=== PATIENT | female | born 1950 | race Caucasian/White ===

== ENCOUNTER → 2016-04-19 | Outpatient (CLI) | payer OTHER ==
--- NOTE | 2016-04-19 14:29 | MA ---
Diagnostic Digital Mammogram left Breast Clinical Indications: Follow up possible developing architectural distortion left breast. Technique: Compression was obtained in CC, mediolateral oblique, and 90-degree lateral views of the left breast. This examination is processed by the [employer] computer-aided detection system. Comparison: August 07, 2015; March 16, 2015; and studies dating back to June 09, 2009. Breast density: B; There are scattered areas of fibroglandular density. Findings: CAD was reviewed. The density of concern appears to represent normal overlapping breast parenchymal tissue. No signifi cant abnormality seen. Impression: Benign findings. BI-RADS 2. These findings were communicated with the patient. Recommendation: Routine annual mammography is recommended in one year. [facility] will send a result letter to the patient. Negative mammography should not preclude additional workup of a clinically suspicious finding.
== END ==
LOC: BMCIMAGING 13:20
DX: R92.8 Other abnormal and inconclusive findings on diagnostic imaging of breast (principal)
CPT/HCPCS: G0206

== ENCOUNTER → 2017-05-02 | Outpatient (CLI) | payer OTHER | LOC: BMCIMAGING 08:18 | PROVIDERS: ATTEND Internal Medicine | DX: Z12.31 Encounter for screening mammogram for malignant neoplasm of breast (principal) ==

== ENCOUNTER 2017-05-16 17:01 | Emergency (ER) | payer OTHER | END 2017-05-16 17:16 | disposition left against medical advice (07) | LOC: CED 17:01 | DX: Z53.21 Procedure and treatment not carried out due to patient leaving prior to being seen by health care provider (principal) ==

== ENCOUNTER 2017-05-16 17:41 | Emergency (ER) | payer OTHER ==
[2017-05-16 17:49] VITALS: TEMP 98.1
[2017-05-16] MEDS ORDERED: NS 1,000 ML IV ONE ×2 (17:54→20:42)
--- NOTE | 2017-05-16 18:02 | CPEKG ---
Heart Rate: 68 RR Interval: 882 P-R Interval: 168 QRSD Interval: 80 QT Interval: 424 QTC Interval: 451 P [place]: 34 QRS [place]: -17 T Wave [place]: 60 EKG Severity - OTHERWISE NORMAL ECG - EKG Impression: SINUS RHYTHM EKG Impression: BORDERLINE LEFT AXIS DEVIATION Electronically Signed By: Toy Pereira 18-May-2017 12:52:56
--- NOTE | 2017-05-16 18:04 | EDPHY ---
HPI/HX/ROS/PE/MDM Narrative: CHIEF COMPLAINT: High blood pressure, palpitations HPI: The patient is a 67 y/o female with a history of hypertension complaining of high blood pressure and palpitations throughout the day today. She fell on Sunday as she was descending 3 steps into the garage. She missed a step and fell hard onto her left side and left shoulder, but denies striking her head, losing consciousness, or any injury from this. That night she had a bright red bloody bowel movement. She has a history of hemorrhoids, but denies prior bloody stools, dark stools, or painful bowel movements. She has not had further blood in her stool since that one incident. Today she has felt uneasy throughout the day with frequent palpitations she describes as skipped beats but not rapid or painful. She has had these symptoms previously over the last 30 years, but states they are much more frequent today than ever before. She has no other cardiac history. She's been "on the edge of feeling faint" with intermittent diffuse tingling and now feels anxious about her symptoms. She also noticed her blood pressure was 200/102 at home despite compliant use of her lisinopril. She has an appointment scheduled with her PCP tomorrow morning for these symptoms, but came to the ED when she saw her BP was high. She denies chest pain, dyspnea, abdominal pain, fever, recent illness, recent trauma, recent medication changes. She does feel like both ankles seemed mildly swollen today. REVIEW OF SYSTEMS: Aside from elements discussed in the HPI, a comprehensive 10-point review of systems was reviewed and is negative. PMH: Hypertension - lisinopril; hemorrhoids; cataract surgery SOCIAL HISTORY: at bedside. PCP: Dr. Puckett at [facility] PHYSICAL EXAM: General:Patient is alert, in no acute distress. BP 193/87, HR 70, 97% on room air. ENT:Eyes are normal to inspection. ENT inspection normal. Neck: Normal inspection. Full range of motion. Respiratory:No respiratory distress. Breath sounds normal bilaterally. Cardiovascular: Regular rate and rhythm. Strong peripheral pulses. Normal cap refill. Abdomen:The abdomen is nontender to palpation. There are no peritoneal signs. There are normal bowel sounds. Back: Normal to inspection. No tenderness to palpation. Skin: Normal color. No rash. Warm and dry. Extremities: Normal appearance. Full range of motion. Neuro: Oriented x3. Normal motor function. Normal sensory function. ED Course: This is a 67 y/o female who presents for evaluation of palpitations and hypertension onset this morning. She describes non-rapid skipped beats frequently throughout the day with associated generalized tingling and near- syncope. She measured her BP at home around 200 systolic. Her exam is unremarkable. Plan for standard cardiac work up including IV, labs, EKG, and chest x-ray. 1L IV NS administered. The 12 lead EKG was interpreted by myself. Sinus rhythm rate 68. See hard copy and/or "tracemaster" electronic copy for interpretation. Chest x-ray: nothing acute. Labs including troponin are normal. Reassessed patient and discussed work up. I have found no obvious cause for her symptoms and she is currently asymptomatic. Exam remains benign. Her BP is currently 183/88 so I have ordered 5mg PO Norvasc prior to discharge. Patient's BP continues to be elevated at 177/90. I've ordered 0.2mg PO clonidine and an additional 1L IV NS. She also received 650mg PO Tylenol for mild headache. BP has been trending down during several reassessments over the last hour. She has been sleeping comfortably. Most recent BP 102/69. Plan for road test. Patient is feeling well during road test and feels ready for discharge home. She remains asymptomatic. I recommended keeping her scheduled appointment with her PCP tomorrow and following up with cardiology as well. Return precautions discussed. She agrees with plan for discharge. MDM: This patient presents essentially with asymptomatic hypertension. She denies chest pain and her presenting complaint is really palpitations in the setting of what sounds like a history of PVCs. Our workup in the ED is negative for signs of end organ damage. The patient developed a mild headache in the ED which was controlled with a single dose of tylenol - I do no think this is an indication of SAH. The patient was treated with an oral dose of amlodipine to try and bring her BP down transiently. She had essentially no response to this medication after almost two hours of observation, so I ordered a single tab of clonidine. This actually over-corrected her BP significantly, but on re- evaluation, patient is comfortable and ambulatory without assistance. We discussed the fact that her BP was quite a bit lower than intended. She refused admission to the hospital for observation and/or further testing. She would like to go home and will follow-up with her PCP tomorrow. We discussed strict return precautions and warning signs and she promises to return for new symptoms or change in BP. - Data Points Imaging Results: Imaging Impressions Chest X-Ray 05/16/17 17:54 Impression: No acute abnormality. Imaging: I viewed and interpreted images myself Laboratory Results: Laboratory Results 05/16/17 18:00 05/16/17 18:00 05/16/17 05/16/17 18:00 18:00 WBC 6.99 10^3/uL 10^3/uL (3.80-9.50) RBC 4.30 10^6/uL 10^6/uL (4.18-5.33) Hgb 13.6 g/dL g/dL (12.6-16.3) Hct 40.6 % % (38.0-47.0) MCV 94.4 fL fL (81.5-99.8) MCH 31.6 pg pg (27.9-34.1) MCHC 33.5 g/dL g/dL (32.4-36.7) RDW 12.4 % % (11.5-15.2) Plt Count 219 10^3/uL 10^3/uL (150-400) MPV 10.2 fL fL (8.7-11.7) Neut % (Auto) 55.6 % % (39.3-74.2) Lymph % (Auto) 31.5 % % (15.0-45.0) [place] % (Auto) 8.6 % % (4.5-13.0) Eos % (Auto) 2.6 % % (0.6-7.6) Baso % (Auto) 1.4 % % (0.3-1.7) Nucleat RBC Rel Count 0.0 % % (0.0-0.2) Absolute Neuts (auto) 3.89 10^3/uL 10^3/uL (1.70-6.50) Absolute Lymphs (auto) 2.20 10^3/uL 10^3/uL (1.00-3.00) Absolute Monos (auto) 0.60 10^3/uL 10^3/uL (0.30-0.80) Absolute Eos (auto) 0.18 10^3/uL 10^3/uL (0.03-0.40) Absolute Basos (auto) 0.10 10^3/uL 10^3/uL (0.02-0.10) Absolute Nucleated RBC 0.00 10^3/uL 10^3/uL (0-0.01) Immature Gran % 0.3 % % (0.0-1.1) Immature Gran # 0.02 10^3/uL 10^3/uL (0.00-0.10) Sodium 143 mEq/L mEq/L (135-145) Potassium 4.3 mEq/L mEq/L (3.5-5.2) Chloride 99 mEq/L mEq/L (97-110) Carbon Dioxide 33 mEq/l H mEq/l (22-31) Anion Gap 11 mEq/L mEq/L (8-16) BUN 20 mg/dL mg/dL (7-23) Creatinine 0.8 mg/dL mg/dL (0.6-1.0) Estimated GFR > 60 Glucose 91 mg/dL mg/dL (70-100) Calcium 9.8 mg/dL mg/dL (8.5-10.4) Troponin I < 0.012 ng/mL ng/mL (0.000-0.034) Medications Given: Discontinued Medications Acetaminophen (Tylenol) 650 mg PO EDNOW ONE Stop: 05/16/17 20:49 Last Admin: 05/16/17 21:02 Dose: 650 mg Amlodipine Besylate (Norvasc) 5 mg PO EDNOW ONE Stop: 05/16/17 19:24 Last Admin: 05/16/17 19:33 Dose: 5 mg Clonidine (Catapres) 0.2 mg PO EDNOW ONE Stop: 05/16/17 21:29 Last Admin: 05/16/17 21:35 Dose: 0.2 mg Sodium Chloride (Ns) 1,000 mls @ 0 mls/hr IV EDNOW ONE; Wide Open PRN Reason: Protocol Stop: 05/16/17 17:55 Last Admin: 05/16/17 18:00 Dose: 1,000 mls Sodium Chloride (Ns) 1,000 mls @ 0 mls/hr IV ONCE ONE PRN Reason: Wide Open Stop: 05/16/17 20:43 Last Admin: 05/16/17 20:45 Dose: 1,000 mls General Time Seen by Provider: 05/16/17 17:51 Initial Vital Signs: Initial Vital Signs Temperature (C) 36.7 C 05/16/17 17:47 Heart Rate 67 05/16/17 17:47 Respiratory Rate 18 05/16/17 17:47 Blood Pressure 177/76 H 05/16/17 17:47 O2 Sat (%) 97 05/16/17 17:47 O2 Delivery Mode Room Air Allergies/Adverse Reactions: aspirin [Aspirin] Allergy (Mild, Verified 05/16/17 17:46) Hives Penicillins Allergy (Mild, Verified 05/16/17 17:46) Hives Home Medications: Medication Instructions Recorded Lisinopril 02/01/09 Synthroid 02/01/09 Departure - Departure Disposition: Home, Routine, Self-Care Clinical Impression: Palpitations, Hypertension Condition: Good Instructions: Heart Palpitations (ED), Chronic Hypertension (ED) Additional Instructions: 1. Continue taking your medications as directed. 2. Follow up with Dr. Puckett tomorrow as planned. 3. We've also referred you to Dr. Foster, frothing machine operator, for further evaluation of your palpitations. Please follow up with his office this week or tomorrow if possible while at the [facility]. 4. Return to the ED for severe headache, fainting, continued blood in your stool , or other worsening of condition. Referrals: Nina Puckett MD [Primary Care Provider] - As per Instructions Cristhian Foster MD [Medical Doctor] - As per Instructions Report Scribed for: Ray Haro Report Scribed by: Fatou Bryant Date of Report: 05/16/17 Time of Report: 18:27 Physician Review and Approval Statement: Portions of this note were transcribed by an ED scribe. I personally performed the history, physical exam, and medical decision making; and confirm the accuracy of the information in the transcribed note.
[2017-05-16 18:11] LABS: PLATELET COUNT 219 10^3/uL (150-400)
[2017-05-16] MEDS ORDERED: amLODIPine BESYLATE 5 MG TAB PO ONE (19:23)
[2017-05-16 20:42] VITALS: RESP 16
[2017-05-16] MEDS ORDERED: ACETAMINOPHEN 325 MG TAB PO ONE (20:48)
[2017-05-16 22:55] VITALS: BP 102/69; PULSE 57; O2SAT 94
== END 2017-05-16 23:28 | disposition home or self-care (01) ==
PROC: 3E0337Z Introduction of Electrolytic and Water Balance Substance into Peripheral Vein, Percutaneous Approach (ICD-10-PCS; principal; 2017-05-16)
DX: R00.2 Palpitations (principal); I10 Essential (primary) hypertension; E86.9 Volume depletion, unspecified

== ENCOUNTER 2017-05-22 22:38 | Observation (INO) | payer OTHER ==
--- NOTE | 2017-05-22 23:38 | EDPHY ---
General - History Smoking Status: Former smoker Narrative: ED PA DICTATION I evaluated and participated in the management of the patient. I also evaluated the patient independently. My co-signature indicates that I have reviewed this chart and I agree with the findings and plan of care as documented. My personal H&P findings include: 67-year-old female with hypertension with seems to have gotten progressively worse over the last 1 month with elevated readings. She is checking her blood pressure on a near daily basis and recently increased her lisinopril dosing because of elevated blood pressure readings. She was seen here recently for ear fullness and facial tingling which she attributes to elevated blood pressure with a relatively unremarkable workup. Today she reports that when she was speaking she had some difficulty pronouncing words, this lasted for about an hour and then improved. This is somewhat concerning for TIA. Today, her workup is unrevealing. I had a long discussion with the patient about pros and cons of admission to the hospital, to be on the safe side, she would like to stay for evaluation for TIA. I feel this is reasonable. I consulted with Dr. Pagan of the hospitalist service who will admit the patient and requests CTA head and neck be performed. These were unremarkable. (Karen Mcgraw) CHIEF COMPLAINT: High blood pressure HISTORY OF PRESENT ILLNESS: Patient complains of high blood pressure and symptoms from this. She says she has had high blood pressure in since last Sunday. When she was leaving work she said that she felt some pressure in her ears and some tingling on the left side of her face. She said she just felt that her blood pressure was elevated. It was at 190/93. No chest pain at that time. She was evaluated here in this emergency department and discharged home after medications were administered the decrease her blood pressure. Saw her primary care physician the following day. She was instructed to continue her medication and take additional lisinopril as needed. She said over the past few days she has felt well in the morning but in the afternoons her blood pressure increases. This was the same today despite taking additional dose of lisinopril at noon and 8: 00 p.m.. Additionally, she felt some difficulty with her speech earlier today and possibly slurred speech at work. This was unwitnessed. Spouse does not report any facial droop. Patient denies any unilateral complaints. No other associated complaints or modifying factors. REVIEW OF SYSTEMS: Ten systems reviewed and are negative unless otherwise noted in the HPI PCP: Dr. Nina Puckett SPECIALISTS: None. Referred to cardiology recently PAST MEDICAL HISTORY: Hypertension, hypothyroid PAST SURGICAL HISTORY: No recent surgeries SOCIAL HISTORY: Nonsmoker. Works at [employer]. Lives independently with her spouse FAMILY HISTORY: Noncontributory EXAMINATION General Appearance: Alert, no distress Head: normocephalic, atraumatic Eyes: Pupils equal and round, no conjunctival pallor or injection. EOM symmetric ENT, Mouth: Mucous membranes moist. Airway patent Neck: Normal inspection, supple, non-tender Respiratory: Lungs are clear to auscultation Cardiovascular: Regular rate and rhythm. No murmur Gastrointestinal: Abdomen is soft and nontender Back: non-tender, no bony abnormalities Neurological: GCS 15. Cranial nerves 2-12 grossly intact. A&O, nonfocal, normal steady gait. Strength is symmetric in the limbs. No pronator drift. Normal finger to nose. Normal mentation Skin: Warm and dry, no rash Extremities: Nontender, no pedal edema Psychiatric: Mood and affect normal DIFFERENTIAL DIAGNOSES: Including but not limited to TIA, CVA, hypertensive urgency, hypertensive emergency, hypertension MDM: 11:40 p.m. Hypertension over the past week with possible TIA described. She has no chest pain at this time. She does have a feeling of fullness in the ears. She describes some possible slurred speech and aphasia earlier today. No facial droop at this time no facial droop witnessed by the spouse. No unilateral complaints. I have ordered laboratory studies and CT scan of the head. IV will place. 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 Case discussed with Dr. Mcgraw 12:30 a.m. Case discussed with radiologist Dr. Valencia. No acute findings. Possible low attenuation of the white matter. I have re-evaluated the patient. She is resting comfortably. Blood pressure is currently 137/87. 12:40 a.m. At this time I have discussed the case again with Dr. Mcgraw. She will assume care of the patient. Please see her note for final disposition. SUPERVISION: Patient was evaluated and examined in conjunction with my secondary supervising physician as documented. We have both examined the patient. (Felipe Guerrero) - Diagnostics Imaging Results: Imaging Impressions Head CT 05/22/17 23:39 Impression: Negative for acute abnormality with no findings to suggest acute cortical ischemia. White matter low-attenuation may reflect small vessel ischemic change. Results called and discussed with Felipe Guerrero PAC on 05/23/2017 at 0:27 - Objective Vital Signs: Initial Vital Signs Temperature (C) 97.7 F 05/22/17 22:52 Heart Rate 67 05/22/17 22:52 Respiratory Rate 16 05/22/17 22:52 Blood Pressure 195/100 H 05/22/17 22:52 O2 Sat (%) 94 05/22/17 22:52 O2 Delivery Mode Room Air Allergies/Adverse Reactions: aspirin [Aspirin] Allergy (Mild, Verified 05/22/17 22:58) Hives Penicillins Allergy (Mild, Verified 05/22/17 22:58) Hives Home Medications: Medication Instructions Recorded Lisinopril 02/01/09 Synthroid 02/01/09 Laboratory Results: Laboratory Results 05/22/17 23:48 05/22/17 23:48 05/22/17 05/22/17 05/22/17 23:48 23:48 23:48 WBC RBC Hgb Hct MCV MCH MCHC RDW Plt Count MPV Neut % (Auto) Lymph % (Auto) [place] % (Auto) Eos % (Auto) Baso % (Auto) Nucleat RBC Rel Count Absolute Neuts (auto) Absolute Lymphs (auto) Absolute Monos (auto) Absolute Eos (auto) Absolute Basos (auto) Absolute Nucleated RBC Immature Gran % Immature Gran # PT INR APTT Sodium 145 mEq/L mEq/L (135-145) Potassium 4.1 mEq/L mEq/L (3.5-5.2) Chloride 102 mEq/L mEq/L (97-110) Carbon Dioxide 29 mEq/l mEq/l (22-31) Anion Gap 14 mEq/L mEq/L (8-16) BUN 15 mg/dL mg/dL (7-23) Creatinine 0.8 mg/dL mg/dL (0.6-1.0) Estimated GFR > 60 Glucose 103 mg/dL H mg/dL (70-100) Hemoglobin A1c Pending Estim Average Glucose Pending Calcium 9.8 mg/dL mg/dL (8.5-10.4) Total Bilirubin 1.1 mg/dL mg/dL (0.1-1.4) Conjugated Bilirubin 0.4 mg/dL mg/dL (0.0-0.5) Unconjugated Bilirubin 0.7 mg/dL mg/dL (0.0-1.1) AST 35 IU/L IU/L (14-46) ALT 39 IU/L IU/L (9-52) Alkaline Phosphatase 73 IU/L IU/L (38-126) Troponin I < 0.012 ng/mL ng/mL (0.000-0.034) Total Protein 8.0 g/dL g/dL (6.3-8.2) Albumin 4.5 g/dL g/dL (3.5-5.0) TSH 16.100 uIU/mL H uIU/mL (0.465-4.680) Free T4 1.49 ng/dL ng/dL (0.59-2.19) Thyroxine (T4) 10.60 ug/dL ug/dL (5.53-11.00) 05/22/17 05/22/17 23:48 23:48 WBC 8.31 10^3/uL 10^3/uL (3.80-9.50) RBC 4.24 10^6/uL 10^6/uL (4.18-5.33) Hgb 14.1 g/dL g/dL (12.6-16.3) Hct 40.2 % % (38.0-47.0) MCV 94.8 fL fL (81.5-99.8) MCH 33.3 pg pg (27.9-34.1) MCHC 35.1 g/dL g/dL (32.4-36.7) RDW 12.3 % % (11.5-15.2) Plt Count 218 10^3/uL 10^3/uL (150-400) MPV 10.3 fL fL (8.7-11.7) Neut % (Auto) 69.0 % % (39.3-74.2) Lymph % (Auto) 20.0 % % (15.0-45.0) [place] % (Auto) 7.9 % % (4.5-13.0) Eos % (Auto) 1.6 % % (0.6-7.6) Baso % (Auto) 1.1 % % (0.3-1.7) Nucleat RBC Rel Count 0.0 % % (0.0-0.2) Absolute Neuts (auto) 5.74 10^3/uL 10^3/uL (1.70-6.50) Absolute Lymphs (auto) 1.66 10^3/uL 10^3/uL (1.00-3.00) Absolute Monos (auto) 0.66 10^3/uL 10^3/uL (0.30-0.80) Absolute Eos (auto) 0.13 10^3/uL 10^3/uL (0.03-0.40) Absolute Basos (auto) 0.09 10^3/uL 10^3/uL (0.02-0.10) Absolute Nucleated RBC 0.00 10^3/uL 10^3/uL (0-0.01) Immature Gran % 0.4 % % (0.0-1.1) Immature Gran # 0.03 10^3/uL 10^3/uL (0.00-0.10) PT 13.9 SEC SEC (12.0-15.0) INR 1.05 (0.83-1.16) APTT 31.4 SEC SEC (23.0-38.0) Sodium Potassium Chloride Carbon Dioxide Anion Gap BUN Creatinine Estimated GFR Glucose Hemoglobin A1c Estim Average Glucose Calcium Total Bilirubin Conjugated Bilirubin Unconjugated Bilirubin AST ALT Alkaline Phosphatase Troponin I Total Protein Albumin TSH Free T4 Thyroxine (T4) Departure - Departure Disposition: [facility] Inpatient Acute Clinical Impression: TIA (transient ischemic attack) Qualifiers: Transient cerebral ischemia type: unspecified Qualified Code(s): G45.9 - Transient cerebral ischemic attack, unspecified Hypertension Qualifiers: Hypertension type: unspecified Qualified Code(s): I10 - Essential (primary) hypertension Condition: Good
[2017-05-22 23:56] LABS: PLATELET COUNT 218 10^3/uL (150-400)
--- NOTE | 2017-05-23 00:04 | CPEKG ---
Heart Rate: 63 RR Interval: 952 P-R Interval: 160 QRSD Interval: 80 QT Interval: 452 QTC Interval: 463 P [place]: 29 QRS [place]: -22 T Wave [place]: 55 EKG Severity - OTHERWISE NORMAL ECG - EKG Impression: SINUS RHYTHM EKG Impression: BORDERLINE LEFT AXIS DEVIATION Electronically Signed By: Karen Mcgraw 23-May-2017 06:42:29
[2017-05-23 00:05] LABS: INR 1.05 (0.83-1.16); PROTIME(PATIENT) 13.9 SEC (12.0-15.0)
[2017-05-23] MEDS ORDERED: ACETAMINOPHEN 325 MG TAB PO PRN (01:12)
[2017-05-23] MEDS ORDERED: ONDANSETRON 4 MG/2 ML VIAL IVP PRN (01:12)
[2017-05-23] MEDS ORDERED: ONDANSETRON DISINTEGRATING 4 MG TAB PO PRN (01:12)
[2017-05-23] MEDS ORDERED: IOPAMIDOL (ISOVUE 370) 100 ML BTL IV ONE (01:15)
--- NOTE | 2017-05-23 01:27 | PDGENHP ---
History and Physical - Chief Complaint Speech difficulty - History of Present Illness 67 yo F w/ hypothyroid and HTN presents with complaints of slurred speech. Patient has been having recent issues with elevated BP. She was elevated in [facility] ED last Sunday and started on Lisinopril for elevated BP. She says over the past few days she has felt well in the morning but that her BP has been elevated in the evenings. Then today, she reports some difficulty with her speech, possibly slurred. This has resolved now and she denies any other neurologic complaints. History Information - Allergies/Home Medication List Allergies/Adverse Reactions: aspirin [Aspirin] Allergy (Mild, Verified 05/22/17 22:58) Hives Penicillins Allergy (Mild, Verified 05/22/17 22:58) Hives Home Medications: Lisinopril 02/01/09 [Last Taken 02/01/09 08:00] Synthroid 02/01/09 [Last Taken 02/01/09 08:00] I have personally reviewed and updated: family history, medical history - Past Medical History hypertension Additional medical history: Hypothyroid - Surgical History Reports: thyroid surgery - Family History Positive for: cancer - Social History Smoking Status: Former smoker Review of Systems Review of Systems: ROS: 10pt was reviewed & negative except for what was stated in HPI & below Physical Exam Physical Exam: Temp Pulse Resp BP Pulse Ox 36.5 C 63 14 178/89 H 97 05/22/17 22:52 05/23/17 00:40 05/23/17 00:40 05/23/17 00:40 05/23/17 00:40 Constitutional: no apparent distress, not in pain Eyes: PERRL, EOMI Ears, Nose, Mouth, Throat: moist mucous membranes, no oral mucosal ulcers Cardiovascular: regular rate and rhythym, no murmur, rub, or gallop Respiratory: no respiratory distress, clear to auscultation Gastrointestinal: normoactive bowel sounds, soft, non-tender abdomen Skin: warm, normal color Neurologic: AAOx3, sensation intact bilaterally, CN II-XII Intact, other (NIHSS 0), No weakness, No numbness Psychiatric: interacting appropriately, not anxious Lab Data & Imaging Review 05/22/17 23:48 05/22/17 23:48 WBC 8.31 10^3/uL (3.80-9.50) 05/22/17 23:48 RBC 4.24 10^6/uL (4.18-5.33) 05/22/17 23:48 Hgb 14.1 g/dL (12.6-16.3) 05/22/17 23:48 Hct 40.2 % (38.0-47.0) 05/22/17 23:48 MCV 94.8 fL (81.5-99.8) 05/22/17 23:48 MCH 33.3 pg (27.9-34.1) 05/22/17 23:48 MCHC 35.1 g/dL (32.4-36.7) 05/22/17 23:48 RDW 12.3 % (11.5-15.2) 05/22/17 23:48 Plt Count 218 10^3/uL (150-400) 05/22/17 23:48 MPV 10.3 fL (8.7-11.7) 05/22/17 23:48 Neut % (Auto) 69.0 % (39.3-74.2) 05/22/17 23:48 Lymph % (Auto) 20.0 % (15.0-45.0) 05/22/17 23:48 [place] % (Auto) 7.9 % (4.5-13.0) 05/22/17 23:48 Eos % (Auto) 1.6 % (0.6-7.6) 05/22/17 23:48 Baso % (Auto) 1.1 % (0.3-1.7) 05/22/17 23:48 Nucleat RBC Rel Count 0.0 % (0.0-0.2) 05/22/17 23:48 Absolute Neuts (auto) 5.74 10^3/uL (1.70-6.50) 05/22/17 23:48 Absolute Lymphs (auto) 1.66 10^3/uL (1.00-3.00) 05/22/17 23:48 Absolute Monos (auto) 0.66 10^3/uL (0.30-0.80) 05/22/17 23:48 Absolute Eos (auto) 0.13 10^3/uL (0.03-0.40) 05/22/17 23:48 Absolute Basos (auto) 0.09 10^3/uL (0.02-0.10) 05/22/17 23:48 Absolute Nucleated RBC 0.00 10^3/uL (0-0.01) 05/22/17 23:48 Immature Gran % 0.4 % (0.0-1.1) 05/22/17 23:48 Immature Gran # 0.03 10^3/uL (0.00-0.10) 05/22/17 23:48 PT 13.9 SEC (12.0-15.0) 05/22/17 23:48 INR 1.05 (0.83-1.16) 05/22/17 23:48 APTT 31.4 SEC (23.0-38.0) 05/22/17 23:48 Sodium 145 mEq/L (135-145) 05/22/17 23:48 Potassium 4.1 mEq/L (3.5-5.2) 05/22/17 23:48 Chloride 102 mEq/L (97-110) 05/22/17 23:48 Carbon Dioxide 29 mEq/l (22-31) 05/22/17 23:48 Anion Gap 14 mEq/L (8-16) 05/22/17 23:48 BUN 15 mg/dL (7-23) 05/22/17 23:48 Creatinine 0.8 mg/dL (0.6-1.0) 05/22/17 23:48 Estimated GFR > 60 05/22/17 23:48 Glucose 103 mg/dL (70-100) H 05/22/17 23:48 Calcium 9.8 mg/dL (8.5-10.4) 05/22/17 23:48 Total Bilirubin 1.1 mg/dL (0.1-1.4) 05/22/17 23:48 Conjugated Bilirubin 0.4 mg/dL (0.0-0.5) 05/22/17 23:48 Unconjugated Bilirubin 0.7 mg/dL (0.0-1.1) 05/22/17 23:48 AST 35 IU/L (14-46) 05/22/17 23:48 ALT 39 IU/L (9-52) 05/22/17 23:48 Alkaline Phosphatase 73 IU/L (38-126) 05/22/17 23:48 Troponin I < 0.012 ng/mL (0.000-0.034) 05/22/17 23:48 Total Protein 8.0 g/dL (6.3-8.2) 05/22/17 23:48 Albumin 4.5 g/dL (3.5-5.0) 05/22/17 23:48 TSH 16.100 uIU/mL (0.465-4.680) H 05/22/17 23:48 Imaging Review: Imaging Impressions Head CT 05/22/17 23:39 Impression: Negative for acute abnormality with no findings to suggest acute cortical ischemia. White matter low-attenuation may reflect small vessel ischemic change. Results called and discussed with Felipe Guerrero PAC on 05/23/2017 at 0:27 Assessment & Plan Assessment: 67 yo F w/ HTN and hypothyroid presents to ED after episode of slurred speech. Plan: 1. Transient aphasia - Possibly consistent w/ TIA and difficult not to treat as such. Age and uncontrolled HTN are risk factors for stroke. TSH elevated on evaluation today, unclear if this has any contribution to presentation. - CTH unremarkable - Will obtain CTA Head/Neck - Brain MRI w/o ordered - TTE w/ bubble - Monitor on telemetry - Lipid panel, A1c ordered - Neurology consult placed - PT/OT/HOOKER LASTER evaluations 2. HTN - Remains uncontrolled w/ SBP>170 here despite recently starting lisinopril. Unclear if hypothyroidism could be contributing. - Allow permissive HTN for now in setting of above - Goal BP<140/90 after 24 hour period - May need additional medication 3. Hypothyroidism - TSH 16 upon admission. - Check free T4 - May need LTX dose adjustment pending result Diet - Regular pending RN swallow eval per protocol Code - Full Ppx - SCDs Dispo - Admit to observation status
--- NOTE | 2017-05-23 10:34 | NEUROPROG ---
Assessment: HOSPITAL NEUROLOGY CONSULT REQUESTING: Jordan Contreras MD REASON: ? stroke HPI: 67 year old right-handed woman with a history of HTN presented to our ED yesterday with high blood pressure. She had presented to our ED earlier in the week with elevated BP readings with SBPs in 180s-190s and symptoms of ringing in the ears, head pressure and tingling in her finger tips. Symptoms resolved with administration of anti-HTN medication and reduction in BP. She had visited with her PCP, who increased her lisinopril. However, on the day of presentation she continued to have elevated BPs and was having trouble with her words. Specifically, she states she had to think a little more to determine what word to use in a sentence. She had no receptive difficulty, no dysarthria. No true expressive difficulty. This was only transient, lasting about an hour. Symptoms have not been apparent since lowering her BP inpatient. She had a a CT head wo in the ED showing chronic microvascular ischemic in the white matter. CTA head/neck was normal. She has no prior history of stroke/TIA. HTN is her only conventional vascular risk factor. ROS: As per the HPI, otherwise a complete 12 point ROS was performed and is negative ALLERGIES AND MEDS: As recorded in the EMR - reviewed and reconciled PFSH: As per the intake H&P by Dr. Contreras from 05/22 EXAM: VS reviewed in EMR GEN: WDWN laying in NAD HEENT: NCAT, sclera anicteric, conjunctiva not injected, MMM, oropharynx clear, no scalp tenderness NECK: supple, nontender, no meningismus CV: RRR s1 s2 wo m/r/c/g. Carotid pulses 2+ wo bruit NEURO: MS: awake, alert, oriented to all spheres. Speech nondysarthric. No language disturbance. Follows commands. Attends to both sides. Recent/remote memory grossly intact. Mood euthymic. Good fund of knowledge. CN: pupils 3mm round and reactive. Fundi with sharp discs. VFF. Primary gaze centered. Full ocular motility. Facial sensation preserved. Face symmetric. Hearing grossly intact to finger rub. Palatoglossal movements intact. Shoulder shrug and head turn strong. MOTOR: normal bulk/tone. No adventitial movements. Full power throughout. SENSORY: intact to all modalities throughout. No extinction. COORD: no ataxia FN/HS. Marco preserved. REFLEX: plantars down. No clonus. DTRS 2/4. GAIT: deferred to PT safety eval DATA REVIEW: Labs reviewed in EMR PERSONALLY INTERPRETED RESULTS AND DATA: CT head wo and CTA head/neck per HPI IMPRESSION AND RECOMMENDATIONS: // SUSPECT HTN EMERGENCY Patient with varying symptoms in conjunction with her elevated BPs, resolved with improvement in her BPs. She is asymptomatic now with a normal neuro exam. Very much suspect HTN emergency. Will get MRI brain wo to rule out acute ischemia. Cont with BP optimization per primary team. Objective: Vital Signs Temp Pulse Resp BP Pulse Ox 36.1 C 67 20 116/54 L 96 05/23/17 07:03 05/23/17 07:03 05/23/17 07:03 05/23/17 07:03 05/23/17 07:03 05/22/17 05/23/17 05/24/17 05:59 05:59 05:59 Intake Total 200 Balance 200 PT 13.9 SEC (12.0-15.0) 05/22/17 23:48 INR 1.05 (0.83-1.16) 05/22/17 23:48 Allergies/Adverse Reactions: aspirin [Aspirin] Allergy (Mild, Verified 05/22/17 22:58) Hives Penicillins Allergy (Mild, Verified 05/22/17 22:58) Hives
--- NOTE | 2017-05-23 12:59 | ECHO ---
[email or web address] [address] [address] Main: [phone] Fax: Transthoracic Echocardiogram Name: GER HSU MR#: [id number] Study Date: 05/23/2017 Study Time: 07:59 AM Date of : 1950 Age: 67 year(s) Height: 160 cm (63 in.) Weight: 56.7 kg (125 lb.) BSA: 1.58 m2 Gender: Female Examination: Echo Indication: HTN, TIA, Garbled speech Image Quality: Contrast: Requested by: Jordan Dangelo BP: 125 mmHg/68 mmHg Heart Rate: Rhythm: Indication: HTN, TIA, Garbled speech Procedure Staff Equipment Sales Specialist: Moose Levine RDCS Reading Physician: Josue Ochoa Requesting Provider: Conclusions: Normal size left ventricle. Normal global systolic LV function. EF is 70 %. No regional wall motion abnormality. Diastolic dysfunction is present. . An agitated saline study was performed and was negative for intracardiac shunting. Trivial to mild tricuspid valve regurgitation. The pulmonary artery pressure is normal. Measurements: Chambers Valvular Assessment AV/MV Valvular Assessment TV/PV Normal Normal Normal Name Value Range Name Value Range Name Value Range Ao Meghann (MM): 1.8 cm (2.2 cm-3.7 AV Vmax: 1.45 m/s (1 m/s-1.7 TR Vmax: 2.71 mm/s ( - ) cm) m/s) TR PGmax: 29 mmHg ( - ) IVSd (2D): 0.8 cm (0.6 cm-1.1 AV maxP mmHg ( - ) syst. PAP: 34 mmHg ( - ) cm) LVOT Vmax: 0.78 m/s (0.7 m/s-1.1 PV Vmax: 0.88 m/s (0.6 m/s-0.9 LVDd (2D): 3.6 cm (3.9 cm-5.3 m/s) m/s) cm) MV E Vmax: 0.61 m/s ( - ) PV PGmax: 3 mmHg ( - ) LVDs (2D): 2.2 cm (2.1 cm-4 MV A Vmax: 0.64 m/s ( - ) cm) MV E/A: 0.95 ( - ) LVPWd (2D): 0.8 cm ( - ) LVEF (2D): 70 (>=54 %) Continued Measurements: Chambers Valvular Assessment AV/MV Valvular Assessment TV/PV Name Value Name Value Name Value LADs Lon.0 cm MV E' Septal: 0.06 m/s CVP (est.): 5 mmHg Patient: GER HSU Study Date: 05/23/2017 Page 1 of 2 07:59 AM LA Area: 11.6 cm2 MV E/E' Septal: 10.40 MV E/E' Lateral: 7.40 Findings: Left Ventricle: Normal size left ventricle. No LV hypertrophy. Normal global systolic LV function. EF is 70 %. No regional wall motion abnormality. Diastolic dysfunction is present. . Right Ventricle: Normal size right ventricle. Left Atrium: An agitated saline study was performed and was negative for intracardiac shunting. Right Atrium: The right atrium is normal in size. Mitral Valve: The mitral valve is normal in appearance and function. Aortic Valve: The aortic valve is tri-leaflet and functions normally. Tricuspid Valve: The tricuspid valve appears normal. Trivial to mild tricuspid valve regurgitation. The pulmonary artery pressure is normal. Pulmonic Valve: The pulmonic valve is normal in appearance and function. Aorta: The aorta is normal. Pericardium: No pericardial effusion. (No Signature Object) Patient: GER HSU Study Date: 05/23/2017 Page 2 of 2 07:59 AM [id number]
--- NOTE | 2017-05-23 15:26 | ASMTCMCOM ---
CM Note CM Note Notes: Patient admitted with speech difficulty and elevated BP. Neurology has seen and attributes her symptoms to a likely hypertensive emergency. Her brain MRI was unremarkable. PT/OT/WIRE ROPE FABRICATION SUPERVISOR have been ordered and are pending. She lives independently with her boyfriend, and I don't anticipate any d/c needs. CM available if so. Date Signed: 05/23/2017 03:26 PM Electronically Signed By:Aurora Zapata RN
[2017-05-23] MEDS: LISINOPRIL 10 MG TAB PO SCH (17:07)
[2017-05-23] MEDS: LEVOTHYROXINE 75 MCG TAB PO SCH (17:07)
--- NOTE | 2017-05-23 22:10 | HOSPPROG ---
Hospitalist Progress Note Assessment/Plan: Hypertensive urgency - symptoms may have been related to hypertensive encephalopathy. Now improved. Planned for discharge today, but order not signed and she remains hospitalized. -cont lisinopril -adding prn norvasc to outpt regimen prn for sbp >160 -send plasma metanephrines to r/o pheo given episodic component with associated flushing and tinnitus Hypothyroidism - THS elevated, but T4 high end of normal. Will defer up- titration of synthroid due to hypertensive issues and normal T4. -follow up with Dr. Guzman, endocrinology Full code Dispo - d/c in am Subjective: Pt feels better. Symptoms completely resolved with normal BP. No CP or SOB. NO salgado or vision changes. She reports when her BP is elevated, she also gets flushed and some tinnitus which is b/l. Objective: Vital Signs Temp Pulse Resp BP Pulse Ox 36.8 C 69 18 145/77 H 92 05/23/17 20:00 05/23/17 20:00 05/23/17 20:00 05/23/17 20:00 05/23/17 20:00 05/22/17 05/23/17 05/24/17 05:59 05:59 05:59 Intake Total 200 400 Balance 200 400 PT 13.9 SEC (12.0-15.0) 05/22/17 23:48 INR 1.05 (0.83-1.16) 05/22/17 23:48 - Physical Exam Constitutional: no apparent distress Eyes: PERRL Ears, Nose, Mouth, Throat: moist mucous membranes Cardiovascular: regular rate and rhythym Respiratory: no respiratory distress Gastrointestinal: normoactive bowel sounds, soft, non-tender abdomen Skin: warm Musculoskeletal: full muscle strength Neurologic: AAOx3 Psychiatric: interacting appropriately ICD10 Worksheet Patient Problems: Problems Problem Status Onset Hypertension Acute TIA (transient ischemic attack) Acute
[2017-05-24 04:38] VITALS: PULSE 59
[2017-05-24] MEDS: LEVOTHYROXINE 75 MCG TAB PO SCH (05:35)
[2017-05-24 07:55] VITALS: BP 115/64; RESP 16; TEMP 98; O2SAT 95
[2017-05-24] MEDS: LISINOPRIL 10 MG TAB PO SCH (08:14)
--- NOTE | 2017-05-24 14:36 | ASDISCHSUM ---
Discharge Information Plan Status:Home with No Needs Medically Cleared to Leave:05/23/2017 Discharge Date:05/24/2017 12:56 PM CM D/C Disposition:Home, Routine, Self-Care ADT D/C Disposition:Home, Routine, Self-Care Projected Discharge Date:05/24/2017 12:00 AM Transportation at D/C: Discharge Delay Reason: Follow-Up Date:05/24/2017 12:00 AM Discharge Slot: Final Diagnosis: Placement Information Patient Contact Information Contact Name:MURALI Relationship:Other Address:[address] City:[place] Alternate Phone: State/Zip Code:[place] [address] Email: Financial Information Financial Class:HMO and PPO Plans Primary Plan Desc:[employer] P[employer] Primary Plan Number:[id number] Secondary Plan Desc: Secondary Plan Number: Assessment Information [facility] CM Progress Note CM Note CM Note Notes: Patient admitted with speech difficulty and elevated BP. Neurology has seen and attributes her symptoms to a likely hypertensive emergency. Her brain MRI was unremarkable. PT/OT/UNIFIED COMMUNICATIONS ENGINEER have been ordered and are pending. She lives independently with her boyfriend, and I don't anticipate any d/c needs. CM available if so. Date Signed: 05/23/2017 03:26 PM Electronically Signed By:Aurora Zapata RN [facility] CM Progress Note CM Note CM Note Notes: Dc order received. Spoke with RN; anticipate dc home independently. CM available if needs/changes. Date Signed: 05/24/2017 02:26 PM Electronically Signed By:Lary Richard, RN Intervention Information
== END 2017-05-24 12:56 | disposition home or self-care (01) ==
LOC: F2N 05-23 02:10 → F3N 05-23 20:00
PROVIDERS: ADMIT Student in an Organized Health Care Education/Training Program; ATTEND Student in an Organized Health Care Education/Training Program
DX: I10 Essential (primary) hypertension (principal); R29.818 Other symptoms and signs involving the nervous system; R47.81 Slurred speech; Z87.891 Personal history of nicotine dependence
CPT/HCPCS: 83835-90; 92523-GN; G0378; Q9967

== ENCOUNTER → 2017-06-07 | Outpatient (CLI) | payer OTHER | LOC: BMCIMAGING 13:31 | PROVIDERS: ATTEND Internal Medicine | DX: I10 Essential (primary) hypertension (principal); R09.89 Other specified symptoms and signs involving the circulatory and respiratory systems ==

== ENCOUNTER → 2017-07-24 | Outpatient (CLI) | payer OTHER | LOC: BMCIMAGING 11:00 | PROVIDERS: ATTEND Internal Medicine Endocrinology, Diabetes & Metabolism | DX: Z13.820 Encounter for screening for osteoporosis (principal); M85.89 Other specified disorders of bone density and structure, multiple sites; Z78.0 Asymptomatic menopausal state ==

== ENCOUNTER → 2018-05-03 | Outpatient (CLI) | payer OTHER, MEDICARE | LOC: BMCIMAGING 08:11 | PROVIDERS: ATTEND Internal Medicine | DX: Z12.31 Encounter for screening mammogram for malignant neoplasm of breast (principal) ==